=== PATIENT | male | born 1975 | race Caucasian/White ===

== ENCOUNTER 2016-11-30 11:14 | Emergency (ER) | payer MEDICAID ==
[2014-02-12 11:10] VITALS: BMI 23.1
[~2016-11-30 11:14] MED LIST: AMBIEN10 MG PO; ATIVAN1 MG PO; NORCO 10/325 TA1 TA1 PO; OXYCODONE HCL10 MG PO; PERCOCET 10/3251 TA1 PO; SOMA350 MG PO; XANAX1 MG PO
== END 2016-11-30 13:08 | disposition home or self-care (01) ==
LOC: D.ER 11:14
DX: T14.8 Other injury of unspecified body region (principal); W54.0XXA Bitten by dog, initial encounter

== ENCOUNTER 2017-09-09 14:45 | Emergency (ER) | payer MEDICAID ==
[2014-02-12 11:10] VITALS: BMI 23.1
== END 2017-09-09 15:45 | disposition home or self-care (01) ==
LOC: D.ER 14:45
DX: M25.512 Pain in left shoulder (principal); M25.511 Pain in right shoulder; M62.838 Other muscle spasm

== ENCOUNTER 2018-07-27 18:28 | Emergency (ER) | payer MEDICAID ==
[~2018-07-27] VITALS: Ht 190.5 cm; Wt 69.1 kg
[2018-07-27 18:32] VITALS: Ht 190.5 cm; Wt 69.1 kg
[2018-07-27] MEDS ORDERED: ULTRAM50 MG PO (18:35)
[2018-07-27] MEDS ORDERED: BACLOFEN20 M1 PO (19:10)
[2018-07-27] MEDS ORDERED: VOLTAREN75 MG PO (19:10)
[2018-07-27 20:44] VITALS: BP 118/77
== END 2018-07-27 20:45 | disposition home or self-care (01) ==
LOC: D.ER 18:28
DX: S49.92XA Unspecified injury of left shoulder and upper arm, initial encounter (principal); W06.XXXA Fall from bed, initial encounter; Y93.89 Activity, other specified; Y92.013 Bedroom of single-family (private) house as the place of occurrence of the external cause; F17.200 Nicotine dependence, unspecified, uncomplicated

== ENCOUNTER → 2018-09-18 14:55 | Outpatient (CLI) | payer MEDICAID ==
[2018-07-27 18:32] VITALS: BMI 19.0
[~2018-09-18 14:55] MED LIST changes: +BACLOFEN20 M1 PO; +ULTRAM50 MG PO; +VOLTAREN75 MG PO
== END | disposition home or self-care (01) ==
LOC: D.MRI 14:55
PROVIDERS: ATTEND Orthopaedic Surgery
DX: M54.12 Radiculopathy, cervical region (principal)

== ENCOUNTER 2018-12-05 00:07 | Emergency (ER) | payer MEDICAID ==
[~2018-12-05] VITALS: Ht 190.5 cm; Wt 86.4 kg
[2018-12-05 00:24] VITALS: Ht 190.5 cm; Wt 86.4 kg
[2018-12-05] MEDS ORDERED: BACLOFEN20 M1 PO (00:44)
[2018-12-05] MEDS ORDERED: VOLTAREN75 MG PO (00:44)
[2018-12-05 01:44] VITALS: BP 128/79
--- NOTE | 2018-12-05 01:47 | NUR ---
DR ANDRADE NOTIFIED AND REVIEWED PT"s BEHAVIOR AND ASSESSMENT RESULTS. PT IS A LOW RISK PER DR ANDRADE. DR ANDRADE STATED TO GIVE RESOURCES TO PT AT TIME OF DISCHARGE. NO FURTHER ORDERS AT THIS TIME. RESOURCES REVIEWED WITH PT AND HE VERBALIZED UNDERSTANDING.
== END 2018-12-05 01:44 | disposition home or self-care (01) ==
LOC: D.ER 00:07
DX: S46.912A Strain of unspecified muscle, fascia and tendon at shoulder and upper arm level, left arm, initial encounter (principal); W54.1XXA Struck by dog, initial encounter; Y93.89 Activity, other specified; Y92.019 Unspecified place in single-family (private) house as the place of occurrence of the external cause; M54.2 Cervicalgia

== ENCOUNTER 2019-06-07 07:38 | Emergency (ER) | payer MEDICAID ==
[~2019-06-07] VITALS: Ht 190.5 cm; Wt 71.7 kg
[2019-06-07 07:48] VITALS: Ht 190.5 cm; Wt 71.7 kg
[2019-06-07 08:52] VITALS: BP 132/72
== END 2019-06-07 08:53 | disposition home or self-care (01) ==
LOC: D.ER 07:38
DX: S93.401A Sprain of unspecified ligament of right ankle, initial encounter (principal); X58.XXXA Exposure to other specified factors, initial encounter; Y93.02 Activity, running

== ENCOUNTER 2019-08-25 01:19 | Emergency (ER) | payer MEDICAID ==
[~2019-08-25] VITALS: Ht 190.5 cm; Wt 72.6 kg
[~2019-08-25 01:19] MED LIST changes: +AMITRIPTYLINE H50 MG PO; +CLEOCIN HCL300 MG PO; +HYDROCODON-ACE1 EA10 PO; +PROBIOTIC1 EAC1 PO
[2019-08-25 01:23] VITALS: Ht 190.5 cm; Wt 72.6 kg
[2019-08-25] MEDS ORDERED: FLUTICASONE PRO16 GM NASAL (02:04)
[2019-08-25] MEDS ORDERED: AUGMENTIN 875-11 TAB PO (02:04)
[2019-08-25 02:25] VITALS: BP 124/81
== END 2019-08-25 02:25 | disposition home or self-care (01) ==
LOC: D.ER 01:19
DX: J01.90 Acute sinusitis, unspecified (principal); R53.81 Other malaise; Z72.0 Tobacco use

== ENCOUNTER 2019-10-15 17:37 | Emergency (ER) | payer MEDICAID ==
[~2019-10-15] VITALS: Ht 190.5 cm; Wt 75.5 kg
[~2019-10-15 17:37] MED LIST changes: +AUGMENTIN 875-11 TAB PO; +FLUTICASONE PRO16 GM NASAL
[2019-10-15 18:09] VITALS: Ht 190.5 cm; Wt 75.5 kg
[2019-10-15] MEDS ORDERED: PENICILLIN V P500 MG PO (18:31)
[2019-10-15] MEDS ORDERED: CLOTRIM ANTIFUN15 GM TOPICAL (18:31)
[2019-10-15 19:11] VITALS: BP 122/84
== END 2019-10-15 19:12 | disposition home or self-care (01) ==
LOC: D.ER 17:37
DX: K08.89 Other specified disorders of teeth and supporting structures (principal); B35.9 Dermatophytosis, unspecified; G89.29 Other chronic pain; Z72.0 Tobacco use